=== PATIENT | female | born 1995 | race Caucasian/White ===

== ENCOUNTER 2020-05-10 02:01 | Emergency (ER) | payer OTHER ==
[~2020-05-10] VITALS: Ht 160 cm; Wt 72.0 kg
--- NOTE | 2020-05-10 02:42 | PHYS DOC ---
General Adult HPI: HPI: Patient is a 44-year-old female coming in for about 3 days of left flank pain that since last evening has moved up to her left anterior shoulder. Patient states pain is worse with taking a deep breath, not changed by movement or palpation. Patient denies any injury. 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 Denies any fevers, cough, nausea, vomiting, diarrhea. Patient denies any personal medical history. Has a family history of blood clots and kidney stones. Patient states she does not drink much water and her urine is sometimes darker but denies any personal history of kidney stone or blood. Denies any dysuria or vaginal discharge. Patient is actively trying to prepare for IVF next month, is taking a oral contraceptive currently that she is about to stop and has been getting various injections. Review of Systems: Review of Systems: Constitutional: Denies fever or chills Eyes: Denies change in visual acuity HENT: Denies nasal congestion or sore throat Respiratory: Denies cough or shortness of breath, chest pain worse with breathing Cardiovascular: Denies chest pain or edema GI: Denies abdominal pain, nausea, vomiting, bloody stools or diarrhea : Denies dysuria, but has had darker urine Musculoskeletal: Denies back pain or joint pain Integument: Denies rash Neurologic: Denies headache, focal weakness or sensory changes Endocrine: Denies polyuria or polydipsia Lymphatic: Denies swollen glands Psychiatric: Denies depression or anxiety Physical Exam: PE: Constitutional: Well developed, well nourished, no acute distress, non-toxic appearance. [] HENT: Normocephalic, atraumatic, bilateral external ears normal, oropharynx moist, no oral exudates, nose normal. [] Eyes: PERRLA, EOMI, conjunctiva normal, no discharge. [] Neck: Normal range of motion, no tenderness, supple, no stridor. [] Cardiovascular:Heart rate regular rhythm, no murmur [] Lungs & Thorax: Bilateral breath sounds clear to auscultation [] Abdomen: Bowel sounds normal, soft, no tenderness, no masses, no pulsatile myke s. [] Skin: Warm, dry, no erythema, no rash. [] Back: No tenderness, no CVA tenderness. [] Extremities: No tenderness, no cyanosis, no clubbing, ROM intact, no edema. [] Neurologic: Alert and oriented X 3, normal motor function, normal sensory function, no focal deficits noted. [] Psychologic: Affect normal, judgement normal, mood normal. [] EKG: EKG: Normal sinus rhythm, normal axis, no ectopy, no ST elevation or depression, heart rate 98 bpm. Radiology/Procedures: Radiology/Procedures: INDICATION: Reason: left chest pain / Spl. Instructions: / History: COMPARISON: None. FINDINGS: 2 view of chest obtained. Mild scoliotic curvature the spine. Cardiac silhouette is unremarkable. No definite focal airspace consolidation. Mild degenerative changes of spine. IMPRESSION: * No definite focal airspace consolidation or pulmonary edema. [] INDICATION: Reason: Left, upper lobe pain Omni 350 100cc / Spl. Instructions: / History: COMPARISON: Chest x-ray from same day TECHNIQUE: Axial CT images obtained through the chest. Intravenous contrast utilized. Angiogram 3D images processed per protocol. One or more of the following individualized dose reduction techniques were utilized for this examination: 1. Automated exposure control; 2. Adjustment of the mA and/or kV according to patient size; 3. Use of iterative reconstruction technique. FINDINGS: No evidence of pneumothorax. No focal airspace consolidation. Motion obscures a portion of the ascending thoracic aorta but no aneurysm or dissection flap in the visualized portions. No central pulmonary embolus with peripheral limitation secondary to breathing motion. IMPRESSION: No central pulmonary embolus. No evidence of pneumothorax or focal airspace consolidation. [] Heart Score: HEART Score for Chest Pain: HEART Score for Chest Pain Response (Comments) Value History Slighlty/Non-Suspicious 0 ECG Normal 0 Age < 45 0 Risk Factors No Risk Factors 0 Troponin < Normal Limit 0 Total 0 Risk Factors: Risk Factors: DM, Current or recent (<one month) smoker, HTN, HLP, family history of CAD, obesity. Risk Scores: Score 0 - 3: 2.5% MACE over next 6 weeks - Discharge Home Score 4 - 6: 20.3% MACE over next 6 weeks - Admit for Clinical Observation Score 7 - 10: 72.7% MACE over next 6 weeks - Early Invasive Strategies Course & Med Decision Making: Course & Med Decision Making Pertinent Labs and Imaging studies reviewed. (See chart for details) [] Dragon Disclaimer: Dragon Disclaimer: This electronic medical record was generated, in whole or in part, using a voice recognition dictation system. Departure Departure: Impression: Primary Impression: Chest pain Disposition: 01 DC HOME SELF CARE/HOMELESS Condition: STABLE Referrals: PCP,UNKNOWN (PCP) Patient Instructions: Pleurisy Additional Instructions: Increase fluid intake, may take ibuprofen or Tylenol for pain KIKI OTT MD May 10, 2020 02:42
--- NOTE | 2020-05-10 02:58 | RAD ---
INDICATION: Reason: left chest and shoulder pain / Spl. Instructions: / History: COMPARISON: None. FINDINGS: 2 view of chest obtained. No focal airspace consolidation. Cardiomediastinal contour unremarkable. No acute osseous abnormality. IMPRESSION: * No focal airspace consolidation or edema. Electronically signed by: Hardy Lassiter MD (05/10/2020 2:56 AM) [id number]
[2020-05-10] MEDS ORDERED: ACETAMINOPHEN 500 MG TABLET PO ONE (03:15)
[2020-05-10 03:17] LABS: BACTERIA,URINE 0 /HPF (0-FEW); BILIRUBIN,URINE NEG (NEG); CLARITY,URINE CLEAR; COLOR,URINE YELLOW; GLUCOSE,URINE NEG (NEG); NITRITE,URINE NEG (NEG); RBC,URINE 0 /HPF (0-2); SQUAMOUS EPITHELIAL CELL,UR OCC /LPF; UROBILINOGEN,URINE 0.2 mg/dL (0.2 mg/dL); WBC,URINE OCC /HPF (0-4)
[2020-05-10 03:21] LABS: BASO % 0 % (0-3); EOS # 0.2 x10^3/uL (0.0-0.7); EOS % 2 % (0-3); HEMATOCRIT 43.8 % (36.0-47.0); HEMOGLOBIN 14.8 g/dL (12.0-15.5); LYMPH # 1.9 x10^3/uL (1.0-4.8); LYMPH % 15 % (24-48); MEAN CORPUSCULAR HEMOGLOBIN 31 pg (25-35); MEAN CORPUSCULAR HGB CONC 34 g/dL (31-37); MEAN CORPUSCULAR VOLUME 92 fL (79-100); MONO # 0.6 x10^3/uL (0.0-1.1); MONO % 5 % (0-9); NEUT # 9.8 x10^3uL (1.8-7.7); NEUT % 78 % (31-73); PLATELET COUNT 229 x10^3/uL (140-400); RED BLOOD COUNT 4.75 x10^6/uL (3.50-5.40); RED CELL DISTRIBUTION WIDTH 12.6 % (11.5-14.5); WHITE BLOOD COUNT 12.6 x10^3/uL (4.0-11.0)
[2020-05-10 03:27] LABS: CALCIUM 9.1 mg/dL (8.5-10.1); CREATININE 0.9 mg/dL (0.6-1.0); GFR 75.7
[2020-05-10 03:34] LABS: ALBUMIN 3.7 g/dL (3.4-5.0); TOTAL BILIRUBIN 0.3 mg/dL (0.2-1.0); TOTAL PROTEIN 7.5 g/dL (6.4-8.2)
[2020-05-10] MEDS ORDERED: CONTRAST GIVEN. MC PRN (04:00)
[2020-05-10] MEDS ORDERED: IOHEXOL 350 MG/ML 100 ML VIAL. IV ONE (04:00)
--- NOTE | 2020-05-10 04:35 | RAD ---
INDICATION: Reason: Left, upper lobe pain Omni 350 100cc / Spl. Instructions: / History: COMPARISON: Chest x-ray from same day TECHNIQUE: Axial CT images obtained through the chest. Intravenous contrast utilized. Angiogram 3D images proce ssed per protocol. One or more of the following individualized dose reduction techniques were utilized for this examinat ion: 1. Automated exposure control; 2. Adjustment of the mA and/or kV according to patient size; 3 . Use of iterative reconstruction technique. FINDINGS: No evidence of pneumothorax. No focal airspace consolidation. Motion obscures a portion of the ascending thoracic aorta but no aneurysm or dissection flap in the v isualized portions. No central pulmonary embolus with peripheral limitation secondary to breathing mo tion. IMPRESSION: No central pulmonary embolus. No evidence of pneumothorax or focal airspace consolidation. Electronically signed by: Hardy Lassiter MD (05/10/2020 4:32 AM) [id number]
[2020-05-10 05:38] VITALS: BP 123/85
--- NOTE | 2020-05-10 09:29 | EKG ---
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
== END 2020-05-10 05:00 | disposition home or self-care (01) ==
LOC: ER 02:04
DX: R07.1 Chest pain on breathing (principal); R10.9 Unspecified abdominal pain
CPT/HCPCS: 36415; 71046; 71275; 80053; 81001; 81025; 84484; 85025; 85379; 93005; 99285